=== PATIENT | male | born 1980 | race Caucasian/White ===

== ENCOUNTER 2021-08-30 09:26 | Emergency (ER) | payer BC, SELFPAY ==
--- NOTE | 2021-08-30 09:27 | ED.WOUNDLAC ---
HPI - Wound/Laceration General Chief Complaint: Wound/Laceration Stated Complaint: Left thumb lac Time Seen by Provider: 08/30/21 09:34 Source: patient, RN notes reviewed and old records reviewed Mode of arrival: ambulatory Limitations: no limitations History of Present Illness HPI narrative: 40-year-old male presents to the [facility] with left thumb LAC, swelling, infection and pain since last night. Patient reports that he was working and cut mid thumb yesterday. Decreased ROM, warmth with abscess within the joint of the mid thumb. Redness noted half left hand with redness streaking up past the antecubital, volar aspect. Patient denies any past medical or surgical history. Denies fevers. Related Data Home Medications Medication Instructions Recorded Confirmed No Home Medications 08/30/21 08/30/21 Allergies Allergy/AdvReac Type Severity Reaction Status Date / Time codeine Allergy Nausea Verified 08/30/21 09:39 Review of Systems Review of Systems: All systems reviewed & are unremarkable except as noted in HPI and below Constitutional: Constitutional: Reports no additional constitutional complaints, Denies chills and Denies fever(s) Eyes: Eyes: Reports no additional eye complaints ENT: Reports system reviewed and no additional complaints, except as documented Cardiovascular: Cardiovascular: Reports no additional cardiovascular complaints, Denies chest pain and Denies dyspnea Respiratory: Respiratory: Reports no additional respiratory complaints, Denies cough and Denies dyspnea Gastrointestinal: Gastrointestinal: Reports no additional gastrointestinal complaints, Denies abdominal pain, Denies nausea and Denies vomiting Musculoskeletal: Musculoskeletal: Reports no additional musculoskeletal complaints and Reports joint swelling (mid left thumb) Integumentary/Breasts: Skin/Breast: Reports as per HPI and Reports erythema (left thumb ) Neurologic: Reports system reviewed and no additional complaints, except as documented Psychiatric: Psychiatric: Reports no additional psychiatric complaints Allergic/Immunologic: Allergic/Immunologic: Reports no additional allergic/immunologic complaints [facility] Past Medical History Medical History (Updated 08/30/21 @ 13:33 by Juani Frey APRN) Patient denies medical problems Social History Social History (Updated 08/30/21 @ 13:33 by Juani Frey APRN) Living arrangements: with family Gender identity (if verbalized by the patient): Male Comments At the time of my signature, I reviewed and agree with the nursing past medical, surgical, social, and family history. There is no relevant family history pertinent to the patient complaint. Exam Const: General: cooperative, healthy appearing, no acute distress, well developed, alert and awake Nutritional Appearance: well nourished Orientation/consciousness: patient oriented x3 Limitations: no limitations HENMT: Head: normal to inspection and No palpable skull fracture present Ears: hearing grossly normal bilaterally and external ears normal Eyes: Pupils: Equal, round and reactive pupils present Neck: Neck: normal visual inspection, no lymphadenopathy and no meningeal signs Chest: Chest palpation & inspection: normal inspection of the chest Resp: Effort & Inspection: normal respiratory effort and no use of accessory muscles Auscultation: clear to auscultation bilaterally, no crackles, no rales, no rhonchi and no wheezes Cardio: Rate: regular rate Rhythm: regular rhythm Skin: Wounds: wounds noted Other: Mental thumb dorsal aspect half centimeter scabbed over area noted. Cellulitic changes noted circumferential left thumb, redness to mid palm, mid dorsal aspect hand, fingers 2/ 3, with streaking up past the antecubital area left forearm. Neuro: General: patient oriented x3, gait normal, moves all extremities, no meningeal signs and no focal motor deficits Cranial nerves: Yes Equal, round and reactive pupils
[2021-08-30 09:35] VITALS: BP 102/80; PULSE 95; RESP 16; TEMP 36.7; O2SAT 98
== END 2021-08-30 09:45 | disposition short-term general hospital (02) ==
PROVIDERS: Emergency Provider Nurse Practitioner
DX: L03.012 Cellulitis of left finger (principal)
CPT/HCPCS: 99212; G0463